=== PATIENT | male | born 1980 | race American Indian/Alaskan Native ===

== ENCOUNTER 2018-04-12 05:16 | Emergency (ER) | payer OTHER ==
[~2018-04-12] VITALS: Ht 190.5 cm; Wt 136.1 kg
[~2018-04-12 05:16] MED LIST: AMOCLA875 PO; AMOX500 PO; Cipro500 MG PO; HYDACE5 PO; Norco 5-325 Ta1 EACH PO
[2018-04-25] MEDS ORDERED: Mupirocin22 GM TOP (06:35)
[2018-04-25] MEDS ORDERED: CEPH500 PO (06:35)
[2018-04-25] MEDS ORDERED: Bactrim Ds Tab1 EACH PO (06:35)
== END 2018-04-12 05:45 | disposition home or self-care (01) ==
LOC: ER 05:16
DX: K42.9 Umbilical hernia without obstruction or gangrene (principal); F17.200 Nicotine dependence, unspecified, uncomplicated
CPT/HCPCS: 99283

== ENCOUNTER 2021-08-19 21:20 | Emergency (ER) | payer OTHER ==
[~2021-08-19] VITALS: Ht 195.6 cm; Wt 147.4 kg
[~2021-08-19 21:20] MED LIST changes: +Bactrim Ds Tab1 EACH PO; +CEPH500 PO; +Mupirocin22 GM TOP
== END 2021-08-19 21:35 | disposition home or self-care (01) ==
LOC: ER 21:20
DX: S09.90XA Unspecified injury of head, initial encounter (principal); F17.200 Nicotine dependence, unspecified, uncomplicated; W22.8XXA Striking against or struck by other objects, initial encounter; Z88.0 Allergy status to penicillin; Z79.899 Other long term (current) drug therapy
CPT/HCPCS: 99282

== ENCOUNTER 2022-09-27 22:42 | Emergency (ER) | payer OTHER ==
[~2022-09-27] VITALS: Ht 195.6 cm; Wt 154.2 kg
[2022-09-28 00:41] LABS: BASOPHILS ABSOLUTE AUTO 0.05 K/mm3 (0.00-0.23); BASOPHILS PERCENT AUTO 0 % (0-2); EOSINOPHILS PERCENT AUTO 1 % (0-6); Hematocrit 43.8 % (37.0-53.0); IMMATURE GRAN ABSOLUTE AUTO 0.04 K/mm3 (0.00-0.10); IMMATURE GRAN PERCENT AUTO 0 % (0-1); LYMPHOCYTES ABSOLUTE AUTO 1.58 K/mm3 (0.84-5.20); LYMPHOCYTES PERCENT AUTO 13 % (21-46); MONOCYTES PERCENT AUTO 4 % (4-13); Mean Corpuscular HGB 28.2 pg (26.0-34.0); Mean Corpuscular HGB Conc 34.2 g/dL (31.5-36.5); Mean Corpuscular Volume 82 fL (80-100); Mean Platelet Volume 10.5 fL (9.1-12.4); NEUTROPHILS ABSOLUTE AUTO 9.55 K/mm3 (1.96-9.15); NEUTROPHILS PERCENT AUTO 81 % (41-73); Platelet Count 222 K/mm3 (150-400); RDW Coefficient Variation 12.5 % (11.7-14.2); RDW Standard Deviation 37.8 fL (35.1-46.3); Red Blood Cell Count 5.32 M/mm3 (4.30-5.90); White Blood Cell Count 11.82 K/mm3 (4.00-11.30)
[2022-09-28 00:59] LABS: Albumin, Blood 3.6 g/dL (3.4-5.0); Albumin/Globulin Ratio 1.1 (0.8-1.8); Bilirubin, Total 0.6 mg/dL (0.1-1.0); Calcium, Blood 8.4 mg/dL (8.5-10.1); Creatinine, Blood 0.83 mg/dL (0.60-1.20); Globulin, Blood 3.3 g/dL (2.2-4.0); Potassium, Blood 4.3 mmol/L (3.5-5.5); Total Protein, Blood 6.9 g/dL (6.4-8.2)
[2022-09-28] MEDS ORDERED: Cleocin HCl150 MG PO (02:00)
[2022-09-28] MEDS ORDERED: Percocet 5-3251 EACH PO ×2 (02:00→02:21)
[2022-09-28] MEDS ORDERED: LATA.005SO LEFTEYE (02:02)
[2022-09-28 05:30] VITALS: BP 157/97
== END 2022-09-28 06:05 | disposition home or self-care (01) ==
LOC: ER 22:42
PROVIDERS: Student in an Organized Health Care Education/Training Program
DX: S02.632A Fracture of coronoid process of left mandible, initial encounter for closed fracture (principal); S02.19XA Other fracture of base of skull, initial encounter for closed fracture; S02.40FA Zygomatic fracture, left side, initial encounter for closed fracture; H05.20 Unspecified exophthalmos; Z88.0 Allergy status to penicillin; Y04.8XXA Assault by other bodily force, initial encounter; F17.200 Nicotine dependence, unspecified, uncomplicated
CPT/HCPCS: 70450; 70486; 80053; 85025; 86850; 86900; 86901; 96374; 99284-25; A9270; J2270

== ENCOUNTER → 2024-10-28 | Outpatient (CLI) | payer OTHER ==
[~2024-10-28] MED LIST changes: +Cleocin HCl150 MG PO; +LATA.005SO LEFTEYE; +Percocet 5-3251 EACH PO
== END | disposition home or self-care (01) ==
LOC: LAB SHORT 17:45 → LAB 17:45
DX: L73.9 Follicular disorder, unspecified (principal)
CPT/HCPCS: 87070; 87075; 87077; 87147; 87186; 87205